=== PATIENT | female | born 1980 | race Hispanic/Latino ===

== ENCOUNTER 2016-08-30 05:46 | Inpatient (IN) | payer OTHER ==
[~2016-08-30] VITALS: Ht 160 cm; Wt 106.6 kg
[~2016-08-30 05:46] MED LIST: ALBU8.5H4 INHALATION; BECL8.7A6 IH; Lactated Ringer's 1,000 ML IV ONE; PNV1TABL81 PO
--- NOTE | 2016-08-30 07:11 | PCM.HPANE ---
Patient Data Surgeon Admitting Provider:Nicola Edwards MD Attending Provider:Nicola Edwards MD Primary Care Physician:Ayad Mejia MD Other Provider:Nahum Champion Anesthesia Reason for Visit repeat c/s repeat c/s Ht/WT & BMI Body Mass Index Allergies Coded Allergies: No Known Allergies (Verified , 03/19/15) Past Anesthesia History Anesthesia History: Denies:: Anesthesia Reactions, Malignant Hyperthermia Diabetes History Hx Diabetes?: No MRSA MRSA: No Medications Reported Medications Albuterol HFA 8.5 Gm Hfa.aer.ad1 Puff INHALATION Q4H PRN For Wheezing #1 INHALER Ref 0 03/19/15 Beclomethasone Dipropionate (Qvar)8.7 Gm Aer.w.adap8.7 Gm IH PRN For Wheezing 03/19/15 Pnv No.122/Iron/Folic Acid ( Multi Tablet)27 Mg Iron-800 Mcg Tablet1 Each PO DAILY 03/19/15 History History of ENT Problems?: Yes Hx of Heart Problems?: No Hx of Respiratory Problem?: Yes Respiratory History: Positive for:: Asthma Denies:: Cough Hx Neurologic Problems?: No Hx of GI Problems?: Yes Gastrointestinal History: Positive for:: Gastroesphageal Reflux Hx of Problems?: No Female Hx: Positive for:: Currently Denies:: Endometriosis (HX OF PCOS) Skin History: Denies:: History Skin Disorders? Pressure Ulcers Hx Musculoskeletal Problems?: No Hx of Psycho/Social Problems?: No Hx Surgeries?: Yes (C. SECTION, VENTRAL HERNIA RPR, APPY) Hx Any Other Health Problems?: Yes Other History: Denies:: Cancer Endocrine Disease Hospitalization Thyroid Disease History Blood Transfusions: Denies:: Blood Transfusions Hx Diabetes: No Hx Alcohol Use: NoHx Substance Use: Yes (MARIJUANA 5 YRS AGO) Smoking Status: Former Smoker Have You Smoked inLast 12 mo: No Stop/Bang Risk Assessment Category Category 1A: Patient has history of documented sleep apnea, and HAS NOT received any narcotic, sedative or anesthesia administration during this stay. Category 1B: Patient has history of documented sleep apnea, and HAS received any narcotic , sedative or anesthesia administration during this stay Category 2: Patient has SUSPECTED Obstructive Sleep Apnea, and HAS received any narcotic , sedative or anesthesia administration during this stay. Category 3: Patient has SUSPECTED Obstructive Sleep Apnea and HAS NOT received narcotic, sedative or anesthesia administration during this stay. Category 4: Outpatient in Procedural Areas with known sleep apnea or who screen positive for High Risk via the STOP/BANG questionnaire. Exam Exam General Appearance: Alert, Oriented X3, Cooperative, No Acute Distress HEENT/AIRWAY: MP 2, Neck Movement (FROM), Mouth Opening (3 FBMO) Lungs: Normal Air Movement Heart: Regular Rate/Rhythm Plan Impression Patient chart reviewed, patient interviewed and anesthestic plan with risks, benefits, and alternatives discussed, and informed consent obtained. NPO Status: MIDNIGHT ASA Physical Status: ASA2 Mod Systemic Disease Anesthetic Plan: SAB Bene/Risks/Altern/Consents: Yes HP Complete Prior to Induction: Yes Other Anesthesia risks of bleeding, infection, back pain, nerve damage, pdph, low bp, itching, GETA discussed. AQA. Consent signed. Clayton Coughlin MD Aug 30, 2016 07:11
[2016-08-30] MEDS ORDERED: CeFAZolin 2 Gm/50 mL D5W Premix IV ONE (07:30)
[2016-08-30] MEDS ORDERED: Hemorrhage Kit, Post Partum XX PRN (07:30)
[2016-08-30 07:33] LABS: Mean Corpuscular Hemoglobin 28.7 pg (27.0-35.0); Mean Corpuscular Volume 86.2 fL (81-100)
[2016-08-30] MEDS ORDERED: Sodium Citrate-Citric Acid 15 mL Solution ONE (07:38)
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
[2016-08-30] MEDS ORDERED: Morphine PF 1 mg/mL 10 mL Inj INTRATHEC ONE (08:25)
[2016-08-30] MEDS ORDERED: Lactated Ringer's 1,000 ML IV PRN (09:24)
[2016-08-30] MEDS ORDERED: EPHEDrine Sulfate 50 mg/mL Inj IVPUSH PRN (09:25)
[2016-08-30] MEDS ORDERED: MetoCLOpramide 5 mg/mL 2 mL Inj IVPUSH PRN (09:25)
[2016-08-30] MEDS ORDERED: fentaNYL-PF 50 mCg/mL 2 mL Inj IVPUSH PRN (09:25)
[2016-08-30] MEDS ORDERED: HYDROmorphone 1 mg/mL Inj IVPUSH PRN (09:25)
[2016-08-30] MEDS ORDERED: Ondansetron 2 mg/mL 2 mL Inj IVPUSH PRN (09:25)
[2016-08-30] MEDS ORDERED: Phenylephrine/NS-PF 100 mCg/mL 5 mL Syringe IVPUSH PRN (09:25)
[2016-08-30] MEDS ORDERED: Atropine 0.4 mg/mL Inj IV PRN (09:25)
[2016-08-30] MEDS ORDERED: Dexamethasone 4 mg/mL Inj IVPUSH PRN (09:25)
--- NOTE | 2016-08-30 09:28 | PCM.ANEP1 ---
Post Anesthesia Phase 1 PACU Phase 1 Assessment Anesthetic Administered: SAB Level of Alertness: Awake, talking GOVEA's with Equal Strength: No (SAB still working) Pain: No Nausea or Vomiting: No Oxygen Delivery: Simple Mask Lungs: Normal Air Movement Dermatome Level: T8 (Costal Margin) Clayton Coughlin MD Aug 30, 2016 09:28
--- NOTE | 2016-08-30 09:28 | PCM.ANEP2 ---
Post Anesthesia Evaluation ASA/CMS Post Anesthesia VS in Patient's Normal Range?: Yes Resp Stable; Airway Patent?: Yes CV Function & Hydration Stable: Yes Mental Status Recovered?: Yes Pain control Satisfactory?: Yes N/V Control Satisfactory?: Yes Clayton Coughlin MD Aug 30, 2016 09:28
[2016-08-30] MEDS ORDERED: Measles-Mumps-Rubella Vaccine 0.5 mL Inj SUBQ ONE (09:35)
[2016-08-30] MEDS ORDERED: Acetaminophen IV 1,000 MG in IV Premix 1 EACH IV PRN (09:35)
[2016-08-30] MEDS ORDERED: Methylergonovine 0.2 mg/mL Inj IM PRN (09:35)
[2016-08-30] MEDS ORDERED: Oxytocin 10 Unit/mL Inj IM PRN (09:35)
[2016-08-30] MEDS ORDERED: LANOlin HPA 7 Gm Ointment TOPICAL PRN (09:35)
[2016-08-30] MEDS ORDERED: Influenza (Adult) Vaccine 0.5 mL Syringe IM ONE (09:35)
[2016-08-30] MEDS ORDERED: TdaP Vaccine 0.5 mL Inj IM ONE (09:35)
[2016-08-30] MEDS ORDERED: Sodium Chloride LOK Flush 10 mL Syringe IVFLUSH PRN (09:35)
[2016-08-30] MEDS ORDERED: hydrOXYzine Pamoate 25 mg Capsule PO PRN (09:35)
[2016-08-30] MEDS ORDERED: Oxytocin 30 Units/500 mL LR 30 UNITS in IV Premix 1 EACH IV PRN (09:35)
[2016-08-30] MEDS ORDERED: Carboprost 250 mCg/mL Inj IM PRN (09:35)
[2016-08-30] MEDS ORDERED: Hemorrhage Kit, Post Partum XX ONE (09:35)
[2016-08-30] MEDS ORDERED: Morphine PF 1 mg/mL 10 mL Inj ONE (11:06)
[2016-08-30] MEDS ORDERED: Ondansetron 2 mg/mL 2 mL Inj ONE (12:52)
[2016-08-30] MEDS ORDERED: Propofol 10,000 mCg/mL 20 mL Inj ONE (12:52)
[2016-08-30] MEDS ORDERED: Bupiv-Spinal 0.75%/Dex 8.25% 2 mL Inj ONE (12:52)
[2016-08-30] MEDS ORDERED: Phenylephrine/NS 100 mCg/mL 10 mL Syringe IVPUSH ONE (12:52)
[2016-08-30] MEDS ORDERED: EPHEDrine/NS 5 mg/mL 5 mL Syringe ONE (12:52)
[2016-08-30] MEDS ORDERED: Oxytocin 10 Unit/mL Inj ONE (12:52)
[2016-08-30] MEDS: CeFAZolin Inj 2 GM in IV Premix 1 EACH IV SCH (16:02)
[2016-08-30] MEDS: Lactated Ringer's 1,000 ML IV SCH (18:31)
[2016-08-31] MEDS: CeFAZolin Inj 2 GM in IV Premix 1 EACH IV SCH ×3 (00:13→16:30)
[2016-08-31] MEDS: oxyCODONE-Acetamin 5-325 mg Tablet PO PRN ×5 (01:28→21:08)
[2016-08-31] MEDS ORDERED: Sodium Citrate-Citric Acid 15 mL Solution PO ONE (06:00)
[2016-08-31 07:35] LABS: Mean Corpuscular Hemoglobin 29.1 pg (27.0-35.0); Mean Corpuscular Volume 86.6 fL (81-100)
[2016-08-31] MEDS: Lactated Ringer's 1,000 ML IV SCH ×2 (12:00→17:32)
[2016-08-31] MEDS: Fluticasone 100 mCg Inhaler INHALATION SCH (12:00)
[2016-09-01] MEDS: oxyCODONE-Acetamin 5-325 mg Tablet PO PRN ×4 (01:56→17:02)
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
--- NOTE | 2016-09-01 15:57 | PCM.DIOB ---
Obstetrical Disch Instruction Dates of Hospitalization Date of Hospital Admission Aug 30, 2016 at 05:46 Providers Admitting Physician: Nicola Edwards MD Primary Care Physician: Ayad Mejia MD Attending Physician: Nicola Edwards MD Discharge Diagnosis Problems: (1) Single delivery by Status: Acute ICD Code: O82 (2) Previous section Status: Acute ICD Code: Z98.89 Diet Discharge Diet: No restrictions Activity Discharge Activity-General: Pelvic Rest for 6 weeks, No lifting >10 pounds for 4-6 weeks Dressing and Incisional Care Dressing Care: Allow Steri Stripes to fall off Hygiene: May shower, DO NOT soak incision under water, NO bathtub, hot tub or whirlpool Follow Up Plan Follow-up appointment: Weeks (Follow up in 2 and in 6 weeks for postoperative/ checkups.) Call your provider for: Fever or Chills, Shortness of breath, Heavy vaginal bleeding, Red painful breasts Nicola Edwards MD Sep 01, 2016 15:57
[2016-09-01] MEDS ORDERED: IBUP800T28 PO (15:59)
[2016-09-01] MEDS ORDERED: DOCU-41 PO (15:59)
[2016-09-01] MEDS ORDERED: OXYC1TAB24 PO (15:59)
[2016-09-01 17:29] VITALS: BP 131/87; PULSE 87; RESP 20
--- NOTE | 2016-09-03 02:12 | OP ---
[address] [address] OPERATIVE REPORT PATIENT: TERRA CONTRERAS : 1980 MR#: [id number] ADMIT: 08/30/2016 JOB ID: [id number] DATE OF SURGERY: 08/30/2016 Please note that a prior report is not found in [employer], and thus this report is redressed at this time once again. SURGEON: Nicola Edwards MD DATA PROCESSING AUDITOR: Luís Huerta MD ANESTHESIA: Spinal. PREOPERATIVE DIAGNOSIS(ES): 1. Term . 2. Prior section x3, for scheduled repeat . POSTOPERATIVE DIAGNOSIS(ES): 1. Term . 2. Prior section x3, for scheduled repeat . PROCEDURES PERFORMED: Repeat low transverse section. INDICATIONS FOR SURGERY: This patient has previously undergone three prior sections. Now at full term, she has requested a repeat section, appropriate. She has not wanted tubal ligation at the time of section however. She was asked to consider this seriously as this is now her fourth . FINDINGS: At surgery fetus was in vertex presentation and amniotic fluid was clear. Baby was vigorous on the operative field. Note that at procedure's close, there was no internal bleeding occurring, urine was clear, and baby and mother were doing well. In the future, we will further discuss once again, recommendation for no additional children unless absolutely highly desired in that there are increasing risks with additional sections, and patient seems to understand this. Note also that if in fact, surgery is undertaken in the future, there would need to be consideration for some type of anxiety medication when feasible in that patient did have a panic attack in the operating room after placement of spinal. This was managed well per anesthesiologist. PROCEDURE IN DETAIL: The patient was placed in the supine position on the operating table after activation of spinal anesthesia. She was then carefully repositioned in a left lateral tilt position and Bueno catheter was placed. Abdomen was then prepped and draped in the usual sterile manner and appropriate time-out was taken. was brought into the room. Pfannenstiel incision was made, a couple fingerbreadths above the symphysis pubis, and incisional site actually caudal to prior scar's. This incision was carried through the skin, subcutaneous tissues and fascia layer and cautery was applied where needed. Rectus muscles then from the overlying fascia and rectus muscles then in the midline and the peritoneal cavity was carefully entered. Transverse incision was then made in the vesicouterine peritoneal fold and this incision was carried through the uterine wall at the lower uterine segment, down to the amniotic sac, which was then ruptured. Clear fluid was recovered and head was brought through the incision. This was followed by delivery of the shoulders, body and extremities and baby was active and crying and vigorous. There was no excessive bleeding occurring from the uterine incision, and baby was doing well, thus 1 minute of delayed cord clamping was accomplished. Umbilical cord was then clamped and cut, and was continued under nurse's watchful care. Placenta with membranes were then expelled from the uterus, intact. Uterus was exteriorized and uterine cavity gauze curettaged. Uterine incision was then closed in a running, locking manner using #1 chromic suture, followed by placement of an imbricating/overlying stitch of #1 chromic suture in a running manner. Uterine wall support was thus good with reinforcement accomplished as described, there was no bleeding occurring at the uterine incision, there was no bleeding occurring at the bladder, and the urine was clear. Uterus was kahlil well. Note reasonable blood loss in the 400 cc range. Ovaries and tubes were inspected and cul-de-sac area was irrigated and suctioned of blood and clots and fluid. Uterus was then returned to the abdominal cavity and gutter areas were cleared of blood and clots and fluid. Uterine wall incision demonstrated no bleeding sites. Instrument, needle and sponge counts were found to be correct. Rectus muscles then drawn together across the midline using interrupted stitches of #1 chromic suture. Subfascial plane was inspected and cautery applied where needed to effect complete hemostasis. Fascial layer was then closed in a running manner using #1 PDS, with great care given to bury the knot on each end. Subcutaneous tissues were extensively irrigated and cautery applied where needed. Skin incision was then closed with shelli. Uterus was expressed of blood and clots. Procedure was thus complete. The patient was taken to her room for recovery, anticipating that she will do very well during the postoperative/ timeframe. ESTIMATED BLOOD LOSS: 400 cc. COMPLICATIONS: None. PROGNOSIS: Good for surgical recovery.
--- NOTE | 2016-09-03 12:16 | PROG NOTE ---
[address] [address] PROGRESS NOTE PATIENT: TERRA CONTRERAS : 1980 MR#: [id number] ADMIT: 08/30/2016 JOB ID: [id number] DATE: 08/31/2016 POSTOPERATIVE DAY #1/ DAY #1 NOTE: The patient underwent repeat section on August 30, 2016. During the postoperative/ time frame thus far, the patient has done well, with stable vitals, afebrile, with reasonable bleeding and pain management, ambulating and voiding, and handling baby well. There has been no incisional concern. There has been no leg pain or shortness of breath. Postoperative/ hemoglobin was 10.9 on August 31, 2016, the first postoperative/ day. PLAN: Continue postoperative/ care. Anticipate discharge to home on September 01, 2016.
--- NOTE | 2016-09-03 12:18 | DIS ---
[address] [address] DISCHARGE SUMMARY PATIENT: TERRA CONTRERAS : 1980 MR#: [id number] ADMIT: 08/30/2016 JOB ID: [id number] DIS: 09/01/2016 DISCHARGED DIAGNOSES: 1. Term , delivered. 2. Status post repeat section. PROCEDURE PERFORMED DURING HOSPITALIZATION: 1. Repeat low transverse section. 2. Spinal anesthesia. HOSPITAL COURSE: The patient was admitted to [facility] on August 30, 2016, on which day she underwent procedures as described. During the postoperative/ timeframe, the patient did well, with stable vitals, afebrile, handling baby well, with reasonable bleeding and pain management, ambulating and voiding, without leg pain or shortness of breath, without incisional problem. She was ready for official discharge on the second postoperative/ day, i.e., September 01, 2016. DISCHARGE PROGRAM: The patient will call p.r.n., yet otherwise she will follow up at two and at six weeks for postoperative/ checkups at [facility] with Dr. Edwards. She will observe pelvic rest and not do any heavy lifting for six weeks. DISCHARGE MEDICATIONS: Include Percocet, ibuprofen, and Colace, prescriptions written. Note that the patient will also continue to use a vitamin at home on a daily basis, and also Qvar and albuterol inhalers as needed and as managed per primary care provider in the setting of asthma. Note that shelli were discontinued prior to discharge, and benzoin and 1/2-inch Steri-Strips were placed.
== END 2016-09-01 19:22 | disposition home or self-care (01) | DRG 766 ==
LOC: FBC 05:46 → EDSTATUS 07:15
PROVIDERS: ADMIT Obstetrics & Gynecology; ATTEND Obstetrics & Gynecology
PROC: 10D00Z1 Extraction of Products of Conception, Low, Open Approach (ICD-10-PCS; principal; 2016-08-30 07:15)
DX: O34.211 Maternal care for low transverse scar from previous cesarean delivery (principal); Z37.0 Single live birth; Z3A.39 39 weeks gestation of pregnancy; J45.909 Unspecified asthma, uncomplicated; O99.52 Diseases of the respiratory system complicating childbirth